=== PATIENT | female | born 1965 | race Hispanic/Latino ===

== ENCOUNTER 2018-06-11 10:17 | Emergency (ER) | payer BC, OTHER ==
--- NOTE | 2018-06-11 11:19 | RAD REPORT ---
EXAM DESCRIPTION: RAD - Chest Pa And Lat (2 Views) - 06/11/2018 10:56 am CLINICAL HISTORY: Abnormal chest exam for follow-up COMPARISON: None. TECHNIQUE: PA and lateral views of the chest were obtained. FINDINGS: The lungs are clear of a peripheral mass or infiltrate. Interstitial markings are mildly p rominent. This is a baseline study at this facility. No lymphadenopathy, scarring or other finding to suspect current or prior TB infection. Heart size is normal and central vasculature is within norm al limits. No pleural effusion or pneumothorax seen. No acute bony finding noted. No aortic abnorm ality. IMPRESSION: Interstitial markings are mildly prominent with the baseline for the patient unknown. No focal scarring, lymphadenopathy, infiltrate or other finding to suspect acute or prior TB infectio n.
--- NOTE | 2018-06-11 11:25 | EDPHYS ---
Physician Documentation [facility] Name: Ramandeep Alejandro Age: 53 yrs Sex: Female : 1965 Arrival Date: 06/11/2018 Time: 10:22 Bed 24 Private MD: None, None ED Physician Christopher Bee HPI: 06/11 11:00 This 53 yrs old Female presents to ER via Ambulatory with complaints of pm1 Abnormal Lab Results. 11:00 Patient presents to ER with complaints of abnormal chest x-ray results. She tests pm1 positive for TB Mantoux test so she has to get chest X-rays. Patient's out patient chest X-ray was abnormal and she was instructed to get clearance from a robotics systems engineer prior to returning to work. Patient could not wait for an appointment in the future so she came to the ER to get a chest x-ray. Patient without any complaints of chest pain, shortness of breath, fever, weight loss, night sweats. Patient with approximately 40 years of 1 pack per day smoking. 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 - Social history:: Smoking status: Patient uses tobacco products, smokes one pack cigarettes per day. - Ebola Screening: : No symptoms or risks identified at this time. ROS: 11:00 Constitutional: Negative for fever, chills, and weight loss, Eyes: Negative for injury, pm1 pain, redness, and discharge, ENT: Negative for injury, pain, and discharge, Neck: Negative for injury, pain, and swelling, Cardiovascular: Negative for chest pain, palpitations, and edema, Respiratory: Negative for shortness of breath, cough, wheezing, and pleuritic chest pain, Abdomen/GI: Negative for abdominal pain, nausea, vomiting, diarrhea, and constipation, Back: Negative for injury and pain, : Negative for injury, bleeding, discharge, and swelling, MS/Extremity: Negative for injury and deformity, Skin: Negative for injury, rash, and discoloration, Neuro: Negative for headache, weakness, numbness, tingling, and seizure. Exam: 11:00 Constitutional: This is a well developed, well nourished patient who is awake, alert, pm1 and in no acute distress. Head/Face: Normocephalic, atraumatic. Eyes: Pupils equal round and reactive to light, extra-ocular motions intact. Lids and lashes normal. Conjunctiva and sclera are non-icteric and not injected. Cornea within normal limits. Periorbital areas with no swelling, redness, or edema. ENT: Nares patent. No nasal discharge, no septal abnormalities noted. Tympanic membranes are normal and external auditory canals are clear. Oropharynx with no redness, swelling, or masses, exudates, or evidence of obstruction, uvula midline. Mucous membranes moist. Neck: Trachea midline, no thyromegaly or masses palpated, and no cervical lymphadenopathy. Supple, full range of motion without nuchal rigidity, or vertebral point tenderness. No Meningismus. Chest/axilla: Normal chest wall appearance and motion. Nontender with no deformity. No lesions are appreciated. Cardiovascular: Regular rate and rhythm with a normal S1 and S2. No gallops, murmurs, or rubs. Normal PMI, no JVD. No pulse deficits. Respiratory: Lungs have equal breath sounds bilaterally, clear to auscultation and percussion. No rales, rhonchi or wheezes noted. No increased work of breathing, no retractions or nasal flaring. Abdomen/GI: Soft, non-tender, with normal bowel sounds. No distension or tympany. No guarding or rebound. No evidence of tenderness throughout. Back: No spinal tenderness. No costovertebral tenderness. Full range of motion. 11:00 Skin: Warm, dry with normal turgor. Normal color with no rashes, no lesions, and no evidence of cellulitis. MS/ Extremity: Pulses equal, no cyanosis. Neurovascular intact. Full, normal range of motion. 11:00 Neuro: Orientation: is normal, Motor: no acute changes, moves all fours, Gait: is steady, at a normal pace, without difficulty. Vital Signs: 10:26 BP 166 / 77; Pulse 66; Resp 18; Temp 97.6; Pulse Ox 97% ; Weight 72.57 kg; Height 5 ft. sv 6 in. (167.64 cm); Pain 0/10; 10:26 Body Mass Index 25.82 (72.57 kg, 167.64 cm) MDM: 10:38 Patient medically screened. pm1 11:23 Data reviewed: vital signs. Data interpreted: Pulse oximetry: on room air is 97 %. pm1 Interpretation: normal. Counseling: I had a detailed discussion with the patient and/or guardian regarding: the historical points, exam findings, and any diagnostic results supporting the discharge/admit diagnosis, radiology results, the need for outpatient follow up, to return to the emergency department if symptoms worsen or persist or if there are any questions or concerns that arise at home. 11:26 Special discussion: smoking cessation. pm1 06/11 10:40 Order name: Chest Pa And Lat (2 Views) XRAY; Complete Time: 11:22 pm1 Administered Medications: No medications were administered Disposition: 14:40 Co-signature as Attending Physician, Christopher Bee MD I agree with the assessment and kdr plan of care. Disposition: 06/11/18 11:25 Discharged to Home. Impression: Person with feared health complaint in whom no diagnosis is made, Tobacco use. - Condition is Stable. - Discharge Instructions: Steps to Quit Smoking, Smoking Hazards. - Work release form, Medication Reconciliation Form, Thank You Letter form. - Follow up: Emergency Department; When: As needed; Reason: Worsening of condition. Follow up: Private Physician; When: 2 - 3 days; Reason: Recheck today's complaints, Continuance of care, Re-evaluation by your physician. - Problem is new. - Symptoms have improved. Signatures: Dispatcher [employer] Carmen Aguillon RN RN sv Rittger, Kevin, MD MD [facility] Anthony Gutierrez RN RN la1 Yan Pham, BRITTNEY CAR DISTRIBUTOR pm1 Corrections: (The following items were deleted from the chart) 11:28 11:25 06/11/2018 11:25 Discharged to Home. Impression: Person with feared health pm1 complaint in whom no diagnosis is made. Condition is Stable. Forms are Medication Reconciliation Form, Thank You Letter, Antibiotic Education, Prescription Opioid Use. Follow up: Emergency Department; When: As needed; Reason: Worsening of condition. Follow up: Private Physician; When: 2 - 3 days; Reason: Recheck today's complaints, Continuance of care, Re-evaluation by your physician. Problem is new. Symptoms have improved. pm1 11:36 11:28 06/11/2018 11:25 Discharged to Home. Impression: Person with feared health la1 complaint in whom no diagnosis is made; Tobacco use. Condition is Stable. Discharge Instructions: Steps to Quit Smoking, Smoking Hazards. Forms are Medication Reconciliation Form, Thank You Letter. Follow up: Emergency Department; When: As needed; Reason: Worsening of condition. Follow up: Private Physician; When: 2 - 3 days; Reason: Recheck today's complaints, Continuance of care, Re-evaluation by your physician. Problem is new. Symptoms have improved. pm1
--- NOTE | 2018-06-11 11:25 | ER ---
Nurse's Notes [facility] Name: Ramandeep Alejandro Age: 53 yrs Sex: Female : 1965 Arrival Date: 06/11/2018 Time: 10:22 Bed 24 Private MD: None, None Diagnosis: Person with feared health complaint in whom no diagnosis is made;Tobacco use Presentation: 06/11 10:25 Presenting complaint: Patient states: sent over here by her DON from her job for an sv abnormal CXR that was done yesterday. Transition of care: patient was not received from another setting of care. Onset of symptoms was June 10, 2018. Care prior to arrival: None. 10:25 Method Of Arrival: Ambulatory sv 10:25 Acuity: MONSERRAT 4 sv 10:41 Risk Assessment: Do you want to hurt yourself or someone else? Patient reports no la1 desire to harm self or others. Initial Sepsis Screen: Does the patient meet any 2 criteria? No. Patient's initial sepsis screen is negative. Does the patient have a suspected source of infection? No. Patient's initial sepsis screen is negative. 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 - Social history:: Smoking status: Patient uses tobacco products, smokes one pack cigarettes per day. - Ebola Screening: : No symptoms or risks identified at this time. Screenin:40 Abuse screen: Denies threats or abuse. Nutritional screening: No deficits noted. la1 Tuberculosis screening: No symptoms or risk factors identified. Fall Risk None identified. Assessment: 10:40 General: Appears in no apparent distress. Behavior is calm, cooperative. Pain: Denies la1 pain. Neuro: Level of Consciousness is awake, alert, obeys commands, Oriented to person, place, time, situation. Cardiovascular: Heart tones S1 S2 present. Respiratory: Airway is patent Trachea midline Respiratory effort is even, unlabored, Respiratory pattern is regular, symmetrical, Breath sounds are clear bilaterally. Denies cough, shortness of breath labored breathing, pain with respiration. GI: No signs and/or symptoms were reported involving the gastrointestinal system. Vital Signs: 10:26 BP 166 / 77; Pulse 66; Resp 18; Temp 97.6; Pulse Ox 97% ; Weight 72.57 kg; Height 5 ft. sv 6 in. (167.64 cm); Pain 0/10; 10:26 Body Mass Index 25.82 (72.57 kg, 167.64 cm) sv ED Course: 10:22 Patient arrived in ED. mr 10:22 None, None is Private Physician. mr 10:26 Triage completed. sv 10:27 Arm band placed on right wrist. sv 10:31 Anthony Gutierrez RN is Primary Nurse. la1 10:37 Yan Pham NP is PHCP. pm1 10:37 Christopher Bee MD is Attending Physician. pm1 10:41 Placed in gown. Call light in reach. la1 10:54 X-ray completed. Patient tolerated procedure well. Patient moved back from radiology. jb2 10:55 Chest Pa And Lat (2 Views) XRAY In Process Unspecified. EDMS 11:29 No provider procedures requiring assistance completed. Patient did not have IV access la1 during this emergency room visit. Administered Medications: No medications were administered Outcome: 11:25 Discharge ordered by MD. pm1 11:29 Discharged to home ambulatory. la1 11:29 Condition: stable 11:29 Discharge instructions given to patient, Instructed on discharge instructions, follow up and referral plans. Demonstrated understanding of instructions, follow-up care. 11:36 Patient left the ED. la1 Signatures: Dispatcher [employer] EDND Carmen Parra RN RN sv Rivera, Maria Queenie Klinee jb2 Anthony Gutierrez RN RN la1 Yan Pham NP WORK FORCE ADVISOR pm1
== END 2018-06-11 11:36 | disposition home or self-care (01) ==
LOC: ER 10:17
DX: Z71.1 Person with feared health complaint in whom no diagnosis is made (principal); F17.210 Nicotine dependence, cigarettes, uncomplicated
CPT/HCPCS: 71046; 99283